=== PATIENT | female | born 2000 | race Asian ===

== ENCOUNTER 2022-07-22 18:37 | Emergency (ER) | payer MEDICAID, OTHER ==
[~2022-07-22] VITALS: Ht 160 cm; Wt 59.0 kg
[2022-07-22 18:55] VITALS: BP_SYST 139
--- NOTE | 2022-07-22 22:20 | NUR ---
Pt brought by self,A&Ox4, pt presents to ER with bugbites and swelling on feet X 2- 3 days,, skin pink and warm, cap refill <3, VSS
--- NOTE | 2022-07-22 23:35 | NUR ---
PT ASSISTED TO CHAIR, AMBULATED WITH STEADY GAIT. PENDING MD [place]
--- NOTE | 2022-07-23 00:35 | NUR ---
ER examining patient in the ac way.
[2022-07-23] MEDS ORDERED: CETI10CA11 PO (00:43)
[2022-07-23] MEDS ORDERED: PRED20TA PO (00:43)
--- NOTE | 2022-07-23 00:51 | NUR ---
DC PT HOME AAOX4, NO SOB NOTED AND NOT IN ANY DISTRESS.DC INSTRUCTION AND PRESCRIPTION WERE GIVEN TO PT. SHE VERBALIZED UNDERSTANDING
== END 2022-07-23 00:50 | disposition home or self-care (01) ==
LOC: SED 18:37
DX: S90.861A Insect bite (nonvenomous), right foot, initial encounter (principal); S90.862A Insect bite (nonvenomous), left foot, initial encounter; Z79.899 Other long term (current) drug therapy; W57.XXXA Bitten or stung by nonvenomous insect and other nonvenomous arthropods, initial encounter; Y93.89 Activity, other specified; Y92.89 Other specified places as the place of occurrence of the external cause; Y99.8 Other external cause status
CPT/HCPCS: 99283